=== PATIENT | female | born 1975 | race Caucasian/White ===

== ENCOUNTER 2016-10-28 19:48 | Emergency (ER) | payer BC ==
[2016-10-28 18:43] LABS: URINE SOURCE CLEAN CATCH
[2016-10-28 18:53] LABS: ALBUMIN SERUM 4.1 g/dL (3.5-5.0); ALKALINE PHOSPHATASE 87 U/L (32-92); ALT (SGPT) 15 U/L (10-40); AST (SGOT) 13 U/L (10-42); BILIRUBIN,TOTAL 0.5 mg/dL (0.2-2.0); BLOOD UREA NITROGEN 12 mg/dL (9-23); CALCIUM SERUM 9.2 mg/dL (8.4-10.2); CARBON DIOXIDE 22 mmol/L (22-31); CHLORIDE 103 mmol/L (100-111); CREATININE SERUM 0.8 mg/dL (0.6-1.4); GLOM FILT RATE Estimated 90.4 mL/min (>60); GLUCOSE FASTING 141 mg/dL (70-110); POTASSIUM 3.7 mmol/L (3.5-5.1); PROTEIN TOTAL SERUM 7.5 g/dL (6.0-8.3); SODIUM 135 mmol/L (135-145)
[2016-10-28 18:56] LABS: BILIRUBIN, DIRECT <0.1 mg/dL (0.0-0.2); BILIRUBIN,INDIRECT 0.4 mg/dL (0.0-0.9)
[2016-10-28 19:03] LABS: URINE APPEARANCE CLEAR; URINE BILIRUBIN NEG (NEG); URINE BLOOD NEG (NEG); URINE COLOR YELLOW; URINE GLUCOSE NEG (NEG); URINE KETONE NEG (NEG); URINE LEUKOCYTE ESTERASE TRACE (NEG); URINE NITRATE NEG (NEG); URINE PH 6.5 (5-8); URINE PROTEIN NEG (NEG); URINE SPECIFIC GRAVITY 1.001 (1.003-1.035); URINE UROBILINOGEN 0.2 MG/DL (NEG)
[2016-10-28 19:06] LABS: CULTURE INDICATED? YES; URINE BACTERIA AUWI NEG (NEGATIVE); URINE SQUAMOUS EPITHELIAL CELL OCC /[HPF]
== END 2016-10-28 21:47 | disposition home or self-care (01) ==
LOC: CED 19:48
PROVIDERS: Emergency Medicine
DX: K86.1 Other chronic pancreatitis (principal); I10 Essential (primary) hypertension; K21.9 Gastro-esophageal reflux disease without esophagitis; Z88.8 Allergy status to other drugs, medicaments and biological substances
CPT/HCPCS: 36415; 80048; 80076; 81003; 87086; 96361; 96374; 96375; 99284; J1170; J2405

== ENCOUNTER → 2016-10-28 | Outpatient (CLI) | payer BC ==
[~2016-10-28] MED LIST: DOXY 100100 MG; MAXIDEX5 ML; NORVASC PO; TRIAMTERENE-HC1 EAC1 PO; VITAMIN D250000 UNIT PO; ZOLOFT100 MG PO
--- NOTE | ~2016-10-28 | CT4 ---
[facility] A Service of [facility] & [facility] RADIOLOGY TEXT RESULTS PATIENT: IVÁN BATES LOCATION: [facility] : 71 UNIT #: [id number] AGE: [address]: JUSTIN MERCADO MD SEX: F ORDER DR: [id number] [facility]. [place], [place] [address] [id number] O MR#: [id number] Acc #: [id number] NAME: IVÁN BATES : 1975 SEX: F STUDY DATE/TIME: 10/28/2016 16:52 UNIT: [facility] ROOM: STUDY DESCRIPTION: CT Abd and Pelv Wo Cont Attending Physician: Justin Mercado M.D. Referring Physician: Justin Mercado M.D. Ordering Physician: Justin Mercado M.D. Primary Care Physician: Justin Mercado M.D. MEDICAL IMAGING REPORT This report is preliminary unless electronic signature is present EXAM Abdomen and pelvis CT, no contrast, 10/28/2016 INDICATIONS 41-year-old female with pancreatitis, mass found on the pancreas, right side abdominal pain 3 days. No history of malignancy status post exploratory laparotomy. TECHNIQUE Noncontrast abdomen and pelvis CT was performed. This CT exam was performed with one or more of the following radiation dose reduction techniques: Automatic exposure control, adjustment of mA and/or kV according to patient size, and iterative reconstruction. COMPARISON 10/15/[address] ABDOMEN: Exam markedly degraded by noncontrast technique. Atelectatic changes are present within the lingula, no effusion or pericardial effusion. Aorta demonstrates no aneurysm. Spleen unremarkable. Adrenal glands are unremarkable. Pancreas demonstrates no distinct evidence of acute pancreatitis on this noncontrast CT. The area of decreased attenuation within the head and uncinate process of the pancreas is not clearly defined or demonstrated on this noncontrast CT. As previously recommended, further evaluation with a pancreatic protocol CT or pancreatic protocol MRI with and without contrast is recommended for further assessment of the pancreas, and in particular the area identified within the pancreatic head on the prior CT. Both benign inflammatory and infectious etiologies or malignant etiologies remain within the differential. [facility] A Service of [facility] & [facility] RADIOLOGY TEXT RESULTS PATIENT: IVÁN BATES LOCATION: [facility] : 71 UNIT #: [id number] AGE: [address]: JUSTIN MERCADO MD SEX: F ORDER DR: Gallbladder and liver are unremarkable. The right kidney is normal. The left kidney is markedly atrophic. There is no hydronephrosis on the left. 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 Renal cortical calcifications are present on the left. CT PELVIS: Bladder unremarkable. Small amount of free fluid in the pelvis is likely physiologic, no adnexal mass or drainable fluid collection. Intermittent diverticulosis. Appendix normal, inguinal canals unremarkable, no suspicious bone lesion. IMPRESSION 1. Previously described imaging findings concerning for acute pancreatitis not clearly demonstrated on this noncontrast scan nor is the area of decreased attenuation in the pancreatic head and uncinate process appreciated with noncontrast technique. As previously recommended, a pancreatic protocol CT or MRI with and without contrast is recommended for further assessment of the pancreas. Please see the prior study of 10/15/2016 for further details. 2. 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 There is compensatory hypertrophy of the right kidney. 3. Examination otherwise demonstrates no acute findings. The appendix is normal, probable physiologic free fluid in the pelvis. Intermittent diverticulosis. Dictated by... Danial Bajwa M.D. THIS IS AN ELECTRONICALLY VERIFIED REPORT Danial Bajwa M.D. at 10/28/2016 10:47 PM TJ/rush TD: 10/28/2016 21:30 JOB #: [id number] MEDICAL IMAGING REPORT Page 1 of 1 COPY
[2016-10-28 17:15] LABS: BASOPHIL# 0.1 X10e3 (0-0.3); BASOPHIL% 1.4 % (0-2.5); EOSINOPHIL# 0.1 X10e3 (0-0.7); EOSINOPHIL% 1.3 % (0.0-7.0); HEMATOCRIT 44.8 % (35.0-45.0); HEMOGLOBIN 15.3 gm/dL (12.0-16.0); LYMPHOCYTE# 2.5 X10e3 (1.0-3.5); LYMPHOCYTE% 26.1 % (17.0-45.0); MEAN CELL VOLUME 89.7 FL (83-96); MEAN CORPUSCULAR HEMOGLOBIN 30.7 PG (28-34); MEAN CORPUSCULAR HGB CONC 34.2 g/dL (30-36); MEAN PLATELET VOLUME 10.3 FL (6.5-11.5); MONOCYTE# 0.5 X10e3 (0-1.0); MONOCYTE% 5.7 % (3.0-12.0); NEUTROPHIL# 6.3 X10e3 (1.5-7.1); NEUTROPHIL% 65.5 % (40-75); PLATELET COUNT 197 X10e3 (140-420); RED BLOOD COUNT 4.99 X10e (3.90-5.30); RED CELL DISTRIBUTION WIDTH 13.9 % (11.0-15.5); WHITE BLOOD COUNT 9.7 X10e3 (4.0-10.5)
[2016-10-28 17:16] LABS: DIFF IND NO
[2016-10-28 17:58] LABS: AMYLASE 251 U/L (0-46); LIPASE 940 U/L (22-51)
== END | disposition home or self-care (01) ==
LOC: CCAT 16:41
PROVIDERS: Internal Medicine
DX: K85.90 Acute pancreatitis without necrosis or infection, unspecified (principal); N26.1 Atrophy of kidney (terminal); N28.81 Hypertrophy of kidney
CPT/HCPCS: 36415; 74176; 82150; 83690; 85025